=== PATIENT | female | born 1995 | race Two or more races ===

== ENCOUNTER 2023-11-05 07:38 | Observation (INO) | payer MEDICAID ==
[~2023-11-05] VITALS: Ht 157.5 cm; Wt 78.5 kg
[2023-11-05] MEDS ORDERED: PREN-96 PO (14:20)
== END 2023-11-05 14:30 | disposition home or self-care (01) ==
LOC: UNDOADMOB 11:00 → LDRP 11:00
PROVIDERS: ADMIT Obstetrics & Gynecology; ATTEND Obstetrics & Gynecology
DX: O24.419 Gestational diabetes mellitus in pregnancy, unspecified control (principal); Z3A.38 38 weeks gestation of pregnancy
CPT/HCPCS: 59025; 76818; 81002; 82948; 82962; 94760; G0378

== ENCOUNTER 2023-11-09 11:54 | Observation (INO) | payer MEDICAID ==
[~2023-11-09 11:54] MED LIST: PREN-96 PO
== END 2023-11-09 15:20 | disposition home or self-care (01) ==
LOC: UNDOADMOB 14:02 → LDRP 14:02
PROVIDERS: ADMIT Obstetrics & Gynecology; ATTEND Obstetrics & Gynecology
DX: O24.419 Gestational diabetes mellitus in pregnancy, unspecified control (principal); Z3A.38 38 weeks gestation of pregnancy
CPT/HCPCS: 59025; 76818; 81002; 82948; 82962; 94760; G0378

== ENCOUNTER 2023-11-12 14:00 | Observation (INO) | payer MEDICAID | END 2023-11-12 17:23 | disposition home or self-care (01) | LOC: LDRP 14:00 | PROVIDERS: ADMIT Obstetrics & Gynecology; ATTEND Obstetrics & Gynecology | DX: O24.419 Gestational diabetes mellitus in pregnancy, unspecified control (principal); Z3A.39 39 weeks gestation of pregnancy | CPT/HCPCS: 59025; 76818; 81002; 82948; 82962; 94760; G0378 ==

== ENCOUNTER 2023-11-16 18:58 | Observation (INO) | payer MEDICAID | END 2023-11-16 20:38 | disposition home or self-care (01) | LOC: LDRP 18:58 | PROVIDERS: ADMIT Obstetrics & Gynecology; ATTEND Obstetrics & Gynecology | DX: O24.419 Gestational diabetes mellitus in pregnancy, unspecified control (principal); O62.9 Abnormality of forces of labor, unspecified; Z3A.39 39 weeks gestation of pregnancy | CPT/HCPCS: 59025; 76818; 81002; 82948; 82962; 94760; G0378 ==

== ENCOUNTER 2023-11-19 07:30 | Observation (INO) | payer MEDICAID | END 2023-11-19 09:39 | disposition home or self-care (01) | LOC: UNDOADMOB 07:30 → LDRP 07:30 | PROVIDERS: ADMIT Obstetrics & Gynecology; ATTEND Obstetrics & Gynecology | DX: O24.419 Gestational diabetes mellitus in pregnancy, unspecified control (principal); O62.9 Abnormality of forces of labor, unspecified; Z3A.40 40 weeks gestation of pregnancy | CPT/HCPCS: 59025; 76818; 81002; 82948; 82962; 94760; G0378 ==

== ENCOUNTER 2023-11-21 19:00 | Inpatient (IN) | payer MEDICAID ==
[~2023-11-21] VITALS: Ht 157.5 cm; Wt 78.5 kg
[2023-11-21] MEDS ORDERED: BUTORPHANOL TARTRATE 2 MG/1 ML VIAL IV PRN ×2 (20:15)
[2023-11-21] MEDS ORDERED: LIDOCAINE 2%HCL (LOCAL ANESTH.) INJ 20ML MDV IJ PRN (20:15)
[2023-11-21] MEDS ORDERED: miSOPROStol 50 MCG per PRE-CUT 1/2 TAB PO PRN (20:15)
[2023-11-21] MEDS ORDERED: ACCU-CHEK COMFORT CURVE STRIP VI PRN (20:15)
[2023-11-21] MEDS: LACTATED RINGER'S 1,000 ML IV SCH (20:30)
[2023-11-21 20:52] LABS: Basophils # (auto) 0 10 ^3/uL (0-0.2); Basophils % (auto) 0.3 % (0.0-2.0); Eosinophils # (auto) 0 10 ^3/uL (0-0.8); Eosinophils % (auto) 0.3 % (0.0-7.0); Hematocrit 38.5 % (36.0-46.0); Hemoglobin 12.7 g/dL (12.2-16.2); Lymphocytes # (auto) 1.4 10 ^3/uL (0.4-5.4); Lymphocytes % (auto) 10.7 % (10.0-50.0); Mean Corpuscular Hemoglobin 30.6 pg (28.0-32.0); Mean Corpuscular Hgb Conc. 32.8 g/dL (32.0-36.0); Mean Corpuscular Volume 93.1 fL (80.0-100.0); Monocytes # (auto) 0.8 10 ^3/uL (0-1.3); Monocytes % (auto) 6.4 % (0.0-12.0); Neutrophils # (auto) 10.7 10 ^3/uL (1.6-8.6); Neutrophils % (auto) 82.3 % (37.0-80.0); Red Blood Cells 4.14 10^6/uL (4.0-5.20); Red Cell Distribution Width 15.3 % (11.8-14.3)
[2023-11-21 21:02] LABS: Alanine Aminotransferase 25 U/L (7-40); Albumin 3.9 g/dL (3.2-4.8); Alkaline Phosphatase 236 U/L (46-116); Anion Gap 9 (5-15); Aspartate Aminotransferase 20 U/L (13-40); BUN/Creatinine Ratio 17.7 (10.0-20.0); Bilirubin, Total 0.3 mg/dL (0.2-1.0); Blood Urea Nitrogen 11 mg/dL (9-23); Calcium 9.6 mg/dL (8.7-10.4); Carbon Dioxide 17 mmol/L (20-30); Chloride 110 mmol/L (98-107); Glucose 81 mg/dL (74-106); Potassium 3.9 mmol/L (3.5-5.1); Sodium 136 mmol/L (136-145); Total Protein 6.6 g/dL (5.7-8.2)
[2023-11-21 21:04] LABS: Urine Bacteria FEW /hpf (None Seen); Urine Blood Negative /uL (Negative); Urine Clarity Turbid (Clear); Urine Color Colorless (Yellow); Urine Mucus FEW (None Seen); Urine Protein, UAD Negative (Negative); Urine Specific Gravity 1.006 (1.001-1.035); Urine Urobilinogen Normal (Negative); Urine WBC 5 /hpf (0 - 5)
[2023-11-21 21:07] LABS: INR 0.96 (0.9-1.15); Partial Thromboplastin Time 26.7 SEC (24.5-34.5); Prothrombin Time 10.2 sec (9.3-11.8)
[2023-11-21 21:12] LABS: Amphetamine Screen, Urine Neg (NEGATIVE); Barbiturate Scree,Urine Neg (NEGATIVE); Benzodiazephine Screen, Urine Neg (NEGATIVE); Cannabinoid Screen, Urine Neg (NEGATIVE); Cocaine Screen, Urine Neg (NEGATIVE); Opiate Scree,Urine Neg (NEGATIVE); Phencyclidine Screen, Urine Neg (NEGATIVE)
[2023-11-21] MEDS: cefTRIAXone 1GM/50ML D5W 50 ML IV ONE (23:00)
[2023-11-22] VITALS (12 sets, daily range): BP systolic 122–139; BP diastolic 72–85; PULSE 90–125; RESP 16–94; TEMP 98.7–100.4; O2SAT 97–100
[2023-11-22] MEDS: PENICILLIN G POT 5MIL/D5 50ML 50 ML IV ONE (04:36)
[2023-11-22] MEDS: LIDOCAINE HCL 2 %PF INJ 10ML AMP IJ ONE ×2 (05:15→11:48)
[2023-11-22] MEDS: ePHEDrine SULFATE 50 MG/ML AMP IV ONE (05:15)
[2023-11-22] MEDS: PHISODERM TOP SOLN 240ML BTL TOP PRN (05:23)
[2023-11-22] MEDS: DERMOPLAST 60ML BOTTLE TOP PRN (05:23)
[2023-11-22] MEDS: WITCH HAZEL-GLYCERIN PAD TOP PRN (05:23)
[2023-11-22] MEDS: fentaNYL CITRATE 100 MCG/2 ML VL IV ONE (06:09)
[2023-11-22] MEDS: ROPIVACAINE HCL 200 ML ONE (06:10)
[2023-11-22] MEDS: PENICILLIN G POTASSIUM 2,500,000 UNITS in D5W 5% 50 ML IV SCH (10:17)
[2023-11-22] MEDS ORDERED: KETAMINE 50mg/ML 1ml syringe ONE (11:41)
[2023-11-22] MEDS ORDERED: MORPHINE SULF PF 5 MG/10 ML VIAL ONE (11:41)
[2023-11-22] MEDS ORDERED: fentaNYL CITRATE 100 MCG/2 ML VL ONE (11:41)
[2023-11-22] MEDS ORDERED: LIDOCAINE 2% (LOCAL ANESTH.) PF 5ml SDV ONE ×3 (11:41→11:48)
[2023-11-22] MEDS ORDERED: MIDAZOLAM HCL 2MG/2ML 2ml VIAL (1mg/ml) ONE (11:42)
[2023-11-22] MEDS ORDERED: oxyTOCIN 10 UNIT/ML 10ML VIAL ONE (11:42)
[2023-11-22] MEDS ORDERED: ONDANSETRON HCL 4 MG/2 ML VIAL ONE (11:42)
[2023-11-22] MEDS ORDERED: ePHEDrine SULFATE 50 MG/ML AMP ONE (11:42)
[2023-11-22] MEDS ORDERED: SODIUM CHLORIDE LOCK 10 ML ONE (11:42)
[2023-11-22] MEDS ORDERED: SODIUM BICARB 8.4% 50Meq/50ml SYR Vial IV ONE (11:44)
[2023-11-22] MEDS ORDERED: LIDOCAINE 1% INJ PF 5ML AMP ONE (11:46)
[2023-11-22] MEDS: SODIUM BICARB 8.4% 50Meq/50ml SYR Vial IV ONE (11:47)
[2023-11-22] MEDS: ACETAMINOPHEN IV 1000 MG/100ML (10MG/ML) IV ONE (11:54)
[2023-11-22] MEDS: LACT. RINGERS/OXYTOCIN 20UNITS 1,000 ML IV ONE (12:00)
[2023-11-22] MEDS: ceFAZolin 2 GM/D5W50ml 50 ML IV ONE (12:00)
[2023-11-22] MEDS ORDERED: ONDANSETRON HCL 4 MG/2 ML VIAL IV PRN (12:00)
[2023-11-22] MEDS ORDERED: cefOXitin 2GM/100ML 100 ML IV SCH (16:00)
[2023-11-22 19:16] LABS: Basophils # (auto) 0 10 ^3/uL (0-0.2); Basophils % (auto) 0.1 % (0.0-2.0); Eosinophils # (auto) 0 10 ^3/uL (0-0.8); Hemoglobin 10.9 g/dL (12.2-16.2); Lymphocytes # (auto) 1.4 10 ^3/uL (0.4-5.4); Lymphocytes % (auto) 7.6 % (10.0-50.0); Mean Corpuscular Hgb Conc. 33.1 g/dL (32.0-36.0); Mean Corpuscular Volume 93.6 fL (80.0-100.0); Monocytes # (auto) 0.7 10 ^3/uL (0-1.3); Monocytes % (auto) 3.7 % (0.0-12.0); Neutrophils # (auto) 15.8 10 ^3/uL (1.6-8.6); Neutrophils % (auto) 88.6 % (37.0-80.0); Red Blood Cells 3.53 10^6/uL (4.0-5.20); Red Cell Distribution Width 15.3 % (11.8-14.3); White Blood Cell 17.8 10^3/uL (4.4-10.8)
[2023-11-22] MEDS: cefOXitin 2GM/100ML 100 ML IV SCH (20:33)
[2023-11-22] MEDS: HYDROmorphone HCL 2 MG/ML VL/or syr IV PRN (21:46)
[2023-11-23] VITALS (11 sets, daily range): BP systolic 105–154; BP diastolic 64–78; PULSE 84–114; RESP 14–20; TEMP 97.7–98.8; O2SAT 90–99
[2023-11-23 06:41] LABS: Basophils # (auto) 0 10 ^3/uL (0-0.2); Basophils % (auto) 0.1 % (0.0-2.0); Eosinophils # (auto) 0 10 ^3/uL (0-0.8); Eosinophils % (auto) 0.1 % (0.0-7.0); Hematocrit 30.1 % (36.0-46.0); Lymphocytes # (auto) 1.4 10 ^3/uL (0.4-5.4); Lymphocytes % (auto) 8.3 % (10.0-50.0); Mean Corpuscular Hemoglobin 31.2 pg (28.0-32.0); Mean Corpuscular Hgb Conc. 33.3 g/dL (32.0-36.0); Mean Corpuscular Volume 93.7 fL (80.0-100.0); Monocytes # (auto) 0.7 10 ^3/uL (0-1.3); Monocytes % (auto) 4.1 % (0.0-12.0); Neutrophils # (auto) 14.2 10 ^3/uL (1.6-8.6); Neutrophils % (auto) 87.4 % (37.0-80.0); Red Blood Cells 3.21 10^6/uL (4.0-5.20); Red Cell Distribution Width 15.2 % (11.8-14.3); White Blood Cell 16.3 10^3/uL (4.4-10.8)
[2023-11-23] MEDS ORDERED: ACETAMINOPHEN IV 1000 MG/100ML (10MG/ML) IV PRN (07:00)
[2023-11-23] MEDS: KETOROLAC TROMETH 30 MG/ML 1ML VIAL IV PRN (07:03)
[2023-11-23 08:06] LABS: RPR Non Reactive (Non Reactive)
[2023-11-23] MEDS: ACETAMINOPHEN IV 1000 MG/100ML (10MG/ML) IV PRN (08:24)
[2023-11-23] MEDS ORDERED: BISACODYL 10 MG RECT SUPP PR PRN (14:15)
[2023-11-23] MEDS ORDERED: HYDROcodone-ACET 5/325MG TAB PO PRN (14:15)
[2023-11-23] MEDS: HYDROcodone-ACET 5/325MG TAB PO PRN (16:01)
[2023-11-23] MEDS: SIMETHICONE 80 MG CHEWABLE TABLET PO SCH (17:33)
[2023-11-23] MEDS: IBUPROFEN 800 MG TAB PO PRN (19:02)
[2023-11-23] MEDS ORDERED: DOCU-265 PO (19:31)
[2023-11-23] MEDS ORDERED: ASCO1TAB27 PO (19:31)
[2023-11-23] MEDS ORDERED: IBUP-1455 PO (19:31)
[2023-11-23] MEDS ORDERED: FER325T PO (19:31)
[2023-11-23] MEDS ORDERED: HYDR-4902 PO (19:31)
[2023-11-23] MEDS: DOCUSATE SOD 100 MG CAP PO SCH (22:08)
[2023-11-24 03:10] VITALS: BP 117/80; PULSE 87; RESP 16; TEMP 97.9; O2SAT 95
[2023-11-24 06:37] LABS: Basophils # (auto) 0 10 ^3/uL (0-0.2); Basophils % (auto) 0.2 % (0.0-2.0); Eosinophils # (auto) 0.1 10 ^3/uL (0-0.8); Eosinophils % (auto) 0.8 % (0.0-7.0); Hematocrit 28.9 % (36.0-46.0); Hemoglobin 9.6 g/dL (12.2-16.2); Lymphocytes # (auto) 1.9 10 ^3/uL (0.4-5.4); Lymphocytes % (auto) 14.4 % (10.0-50.0); Mean Corpuscular Hemoglobin 31.2 pg (28.0-32.0); Mean Corpuscular Volume 94.4 fL (80.0-100.0); Monocytes # (auto) 0.6 10 ^3/uL (0-1.3); Monocytes % (auto) 4.6 % (0.0-12.0); Neutrophils # (auto) 10.4 10 ^3/uL (1.6-8.6); Red Blood Cells 3.06 10^6/uL (4.0-5.20); Red Cell Distribution Width 15.8 % (11.8-14.3); White Blood Cell 12.9 10^3/uL (4.4-10.8)
[2023-11-24 07:30] VITALS: BP 115/69; PULSE 95; RESP 18; TEMP 98.6; O2SAT 97
[2023-11-24] MEDS ORDERED: DOCUSATE CALCIUM 240 MG CAP PO SCH (10:00)
[2023-11-24 11:28] VITALS: BP 116/64; PULSE 90; RESP 18; TEMP 98.6; O2SAT 97
[2023-11-24 18:06] LABS: Treponema pallidum Ab (FTA-Ab) Non Reactive (Non Reactive)
== END 2023-11-24 11:26 | disposition home or self-care (01) | DRG 540 ==
LOC: LDRP 19:00 → UNDOADMIN 19:00 → LDRP 20:14
PROVIDERS: ADMIT Nurse Practitioner Family; ATTEND Obstetrics & Gynecology
PROC: 3E0DXGC Introduction of Other Therapeutic Substance into Mouth and Pharynx, External Approach (ICD-10-PCS; 2023-11-22)
PROC: 10D00Z1 Extraction of Products of Conception, Low, Open Approach (ICD-10-PCS; principal; 2023-11-22 12:04)
DX: O48.0 Post-term pregnancy (principal); O86.4 Pyrexia of unknown origin following delivery; O24.420 Gestational diabetes mellitus in childbirth, diet controlled; O61.9 Failed induction of labor, unspecified; O76 Abnormality in fetal heart rate and rhythm complicating labor and delivery; O77.0 Labor and delivery complicated by meconium in amniotic fluid; O99.284 Endocrine, nutritional and metabolic diseases complicating childbirth; E78.5 Hyperlipidemia, unspecified; O99.824 Streptococcus B carrier state complicating childbirth; O90.81 Anemia of the puerperium; D50.0 Iron deficiency anemia secondary to blood loss (chronic); Z3A.40 40 weeks gestation of pregnancy; Z37.0 Single live birth
CPT/HCPCS: 36415; 59025; 80053; 80307; 81001; 82948; 82962; 85025; 85610; 85730; 86592; 86850; 86900; 86901; 94760; 94762; 96360; 96361; 96366; G0378; J0131; J0694; J1885; J2001; J2250; J2405; J2540; J2590; J7060